=== PATIENT | female | born 1975 | race Caucasian/White ===

== ENCOUNTER → 2017-05-29 | Outpatient (CLI) | payer OTHER ==
[2017-05-29 08:51] LABS: HEMATOCRIT 40.4 % (35.0-45.0); HEMOGLOBIN 13.7 gm/dL (12.0-16.0); MEAN CELL VOLUME 88.2 FL (83-96); MEAN CORPUSCULAR HEMOGLOBIN 29.9 PG (28-34); MEAN CORPUSCULAR HGB CONC 33.9 g/dL (30-36); MEAN PLATELET VOLUME 8.3 FL (6.5-11.5); RED BLOOD COUNT 4.58 X10e (3.90-5.30); WHITE BLOOD COUNT 8.1 X10e3 (4.0-10.5)
[2017-05-29 09:08] LABS: BUN/CREATININE RATIO 31.25; CALCIUM SERUM 9.2 mg/dL (8.4-10.2); CREATININE SERUM 0.8 mg/dL (0.6-1.4); GLOM FILT RATE Estimated 90.4 mL/min (>60); POTASSIUM 4.2 mmol/L (3.5-5.1)
== END | disposition home or self-care (01) ==
LOC: SLAB 08:30
PROVIDERS: Orthopaedic Surgery
DX: Z01.812 Encounter for preprocedural laboratory examination (principal); M19.011 Primary osteoarthritis, right shoulder
CPT/HCPCS: 36415; 80048; 85027